=== PATIENT | female | born 1945 | race Hispanic/Latino ===

== ENCOUNTER 2017-01-21 06:52 | Day surgery (SDC) | payer MEDICARE ==
[2017-01-13 09:18] VITALS: BMI 25.9
[2017-01-21] MEDS ORDERED: Propofol 10 mg/ml Inj (20 ML) ONE (09:12)
[2017-01-21] MEDS ORDERED: Sodium Chloride 0.9% 1,000 ML IV SCH (09:30)
[2017-01-21 10:40] VITALS: BP 119/53; RESP 16; TEMP 97.8; O2SAT 100
[2017-01-21 10:43] VITALS: PULSE 63
== END 2017-01-21 10:50 | disposition home or self-care (01) ==
LOC: ENDO 06:52
PROVIDERS: ATTEND Internal Medicine
DX: K22.70 Barrett's esophagus without dysplasia (principal); K31.7 Polyp of stomach and duodenum; K21.9 Gastro-esophageal reflux disease without esophagitis; Z98.84 Bariatric surgery status
CPT/HCPCS: 43239; 88305; 88312; J2704; J7040 ×2

== ENCOUNTER 2017-01-29 20:10 | Emergency (ER) | payer MEDICARE ==
[2017-01-29 20:16] VITALS: BMI 25.7
[2017-01-29 20:21] VITALS: TEMP 98.1
[2017-01-29] MEDS ORDERED: TDAP Vaccine 0.5 mL Syr IM ONE (20:33)
--- NOTE | 2017-01-29 20:36 | ED PDOC ---
Arrival/HPI - General Chief Complaint: Trauma Time Seen by Provider: 01/29/17 20:32 Historian: Patient - History of Present Illness Narrative History of Present Illness (Text): 01/29/17 21:17 71-year-old female presents today status post mechanical fall. Patient is complaining of pain to the right upper arm right elbow and right forearm left hand and left wrist. Patient states she tripped and fell floor landing on her left arm then her right arm and both knees. Patient states she hit her head. Denies headache dizziness or loss of consciousness. Patient unsure of her last tetanus shot. Patient denies numbness weakness or tingling in the extremity. Patient states she has not taken any medications for pain at home. Patient states incident occurred prior to arrival. Patient refusing any medications for pain Time/Duration: Prior to Arrival Symptom Onset: Sudden Symptom Course: Unchanged Quality: Aching, Throbbing Severity Level: 7 Past Medical History - Provider Review Nursing Documentation Reviewed: Yes - Travel History Have you recently traveled outside [place] w/in the past 3 mons?: No - Infectious Disease Hx of Infectious Diseases: None - Tetanus Immunization Tetanus Immunization: Unknown - Reproductive Menopause: Yes - Cardiac Hx Cardiac Disorders: Yes Hx Hypertension: Yes Hx Pacemaker: No - Pulmonary Hx Respiratory Disorders: No - Neurological Hx Neurological Disorder: No Hx Paralysis: No - HEENT Hx HEENT Disorder: No - Renal Hx Renal Disorder: No - Endocrine/Metabolic Hx Endocrine Disorders: No - Hematological/Oncological Hx Blood Disorders: No Hx Blood Transfusions: No - Integumentary Hx Dermatological Disorder: No - Musculoskeletal/Rheumatological Hx Musculoskeletal Disorders: No - Gastrointestinal Hx Gastrointestinal Disorders: No - Genitourinary/Gynecological Hx Genitourinary Disorders: No - Psychiatric Hx Psychophysiologic Disorder: Yes Hx Anxiety: Yes Hx Emotional Abuse: No Hx Physical Abuse: No Hx Substance Use: No - Surgical History Hx Hysterectomy: Yes Other/Comment: lap band 8 years ago - Anesthesia Hx Anesthesia: Yes Hx Anesthesia Reactions: No Hx Malignant Hyperthermia: No - Suicidal Assessment Feels Threatened In Home Enviroment: No Family/Social History - Physician Review Nursing Documentation Reviewed: Yes Family/Social History: Unknown Family HX Smoking Status: Never Smoked Hx Alcohol Use: No Hx Substance Use: No Allergies/Home Meds Allergies/Adverse Reactions: Allergies No Known Allergies Allergy (Verified 01/29/17 20:16) Home Medications: Home Meds Medication Instructions Recorded Confirmed Zolpidem Tartrate [Ambien] 10 mg PO HS 09/16/14 01/29/17 Alprazolam [Alprazolam Xr] 0.5 mg PO BID PRN 10/02/15 01/29/17 Hydrochlorothiazide [HCTZ] 25 mg PO DAILY 10/02/15 01/29/17 Lisinopril [Zestril] 40 mg PO DAILY 10/02/15 01/29/17 Multivitamin [One Daily] 1 tab PO DAILY 10/02/15 01/29/17 Dexlansoprazole [Dexilant] 1 tab PO DAILY 01/21/17 01/29/17 Review of Systems - Review of Systems Constitutional: absent: Fatigue, Fevers Eyes: absent: Vision Changes, Photophobia, Eye Pain Respiratory: absent: SOB, Cough Cardiovascular: absent: Chest Pain, Palpitations Gastrointestinal: absent: Abdominal Pain, Nausea, Vomiting Genitourinary Female: absent: Dysuria Musculoskeletal: Arthralgias. absent: Back Pain, Neck Pain Skin: absent: Rash, Pruritis Neurological: absent: Headache, Dizziness, Focal Weakness, Disequilibrium Physical Exam Vital Signs Reviewed: Yes Vital Signs Temp Pulse Resp BP Pulse Ox 01/29/17 23:49 78 16 155/85 H 95 01/29/17 20:19 98.1 F 95 H 18 172/100 H 100 Temperature: Afebrile Blood Pressure: Hypertensive Pulse: Regular Respiratory Rate: Normal Appearance: Positive for: Well-Appearing, Non-Toxic, Comfortable Pain Distress: None Mental Status: Positive for: Alert and Oriented X 3 - Systems Exam Head: Present: Atraumatic. No: Tenderness, Contusion, Swelling, Ecchymosis, Abrasion Pupils: Present: PERRL Extroacular Muscles: Present: EOMI Mouth: Present: Moist Mucous Membranes Neck: Present: Normal Range of Motion. No: MIDLINE TENDERNESS, Paraspinal Tenderness Respiratory/Chest: Present: Clear to Auscultation, Good Air Exchange. No: Respiratory Distress, Accessory Muscle Use Cardiovascular: Present: Regular Rate and Rhythm, Normal S1, S2. No: Murmurs Abdomen: No: Tenderness Back: Present: Normal Inspection. No: Midline Tenderness, Paraspinal Tenderness Upper Extremity: Present: NORMAL PULSES, Tenderness (right arm; + ttp over humerus, elbow and forearm; + edema to forearm; limited supination and extension. sensation and distal pulses intact; cap refill <2. left arm; + ttp over base of left hand, no wrist tenderness; full rom of wrist; no snuff box tenderness; sensation and distal pulses intact; cap refill <2. + abrasion to volar aspect of left hand along base of 5th metacarpal abrasion to left posterior elbow; non tender. full rom of elbow; no shoulder tenderness. ), Swelling, Neurovascularly Intact, Capillary Refill < 2s, Other (right hand + ecchymosis over palmar aspect of hand. + tenderness. no wrist tenderness. no snuff box tenderness of right wrist. ). No: Normal ROM, Erythema, Deformity Lower Extremity: Present: Capillary Refill < 2 s, Other (abrasions noted to anterior aspect of both knees. full rom. ambulates with steady gait. ). No: CALF TENDERNESS, Tenderness, Swelling, Erythema, Deformity Neurological: Present: GCS=15, Speech Normal Skin: Present: Warm, Dry, Normal Color Psychiatric: Present: Alert, Oriented x 3 Medical Decision Making ED Course and Treatment: 01/29/17 21:21 71yr old female with right and left arm pain and head injury s/p mechanical fall. pt refused any medications for pain. xray left hand; no fracture xray left wrist; no fracture xray right humerus; no fracture xray right forearm; no fracture xray right elbow + sail sign; no visible fracture. pt returned from xray; now c/o right hand pain and pain to the both knees. pt now wants pain medication. states she was trying to be tough before. xray right hand; no fracture xray of b/l knees; no fracture ct head; FINDINGS: Brain: There are scattered foci of hypodensity within the cerebral white matter, likely representing small vessel ischemic disease in a patient this age. The acuity of the white matter disease is indeterminate. The white-tovar differentiation is preserved demonstrating no acute territorial type infarct. There is mild prominence of the ventricles and frontal sulci, compatible with atrophy. No acute intracranial hemorrhage is seen. There is an empty sella. Midline shift: There is no midline shift. Ventricles: See above. Bones/joints: The calvarium demonstrates no evidence for a depressed fracture. Soft tissues: No acute abnormality. Vasculature: There is atherosclerotic calcification of the cavernous internal carotid arteries. Sinuses: Mucosal thickening/effusion is seen within the left sphenoid sinus. There is opacification of a left mid ethmoid air cell. Mastoid air cells: No mastoid effusion. IMPRESSION: 1. No acute intracranial hemorrhage or acute territorial type infarct. 2. There are scattered foci of hypodensity within the cerebral white matter, likely representing small vessel ischemic disease in a patient this age. 3. Mild atrophy. 4. Paranasal sinus disease is noted above. 5. There is an empty sella. tetanus updated pt reassessment; i discussed all results in depth with patient; long arm posterior splint applied, sling applied. all wounds cleaned, bacitracin and dressing applied. i advised f/u with orthopedist within the next 2 days. i advised immediate return if symptoms worsen,persist or if new symptoms develop. Patient verbalized full agreement with and understanding of discharge instructions. States that he agrees with the plan and disposition. Verbalized and repeated discharge instructions and plan. I have given the patient opportunity to ask any additional questions. all aspects of this case were discussed the attending of record. impression; elbow fracture, arm pain, abrasion arm, abrasion knee, head injury motrin every 6 hours as needed for pain percocet; 1 tablet every 6 hours as needed for moderate to severe pain; may cause drowsiness follow up with the orthopedist within the next 2 days follow up with the primary care physician within the next 2 days. rest, ice, elevation. return immediately if symptoms worsen,persist or if new symptoms develop. - RAD Interpretation Radiology Orders: 01/29/17 20:32 HEAD W/O CONTRAST [CT] Stat 01/29/17 20:33 ELBOW RIGHT 3 VIEWS ROUTINE [RAD] Stat FOREARM RIGHT [RAD] Stat HAND LEFT 3 VIEWS ROUTINE [RAD] Stat HUMERUS RIGHT [RAD] Stat WRIST, LEFT 3 VIEWS [RAD] Stat 01/29/17 21:50 HAND RIGHT 3 VIEWS [RAD] Stat KNEES BILATERAL [RAD] Stat - Medication Orders Current Medication Orders: Discontinued Medications Ketorolac Tromethamine (Toradol) 30 mg IM STAT STA Stop: 01/29/17 21:53 Last Admin: 01/29/17 22:35 Dose: 30 mg Oxycodone/Acetaminophen (Percocet 5/325 Mg Tab) 1 tab PO STAT STA Stop: 01/29/17 21:50 Last Admin: 01/29/17 22:35 Dose: 1 tab Tetanus/Reduced Diphtheria/Acell Pertussis (Boostrix Vaccine Inj) 0.5 ml IM .ONCE ONE Stop: 01/29/17 20:34 Last Admin: 01/29/17 21:41 Dose: 0.5 ml Procedures - Splinting Location: right elbow Hand-Made Type: fiberglass Splint: long arm posterior splint Pre-Proc Neuro Vasc Exam: normal Post-Proc Neuro Vasc Exam: normal Disposition/Present on Arrival - Present on Arrival Any Indicators Present on Arrival: No History of DVT/PE: No History of Uncontrolled Diabetes: No Urinary Catheter: No History of Decub. Ulcer: No History Surgical Site Infection Following: None - Disposition Have Diagnosis and Disposition been Completed?: Yes Diagnosis: Elbow fracture, Arm pain, Abrasion of arm, left, Abrasion, knee, Head injury Disposition: HOME/ ROUTINE Disposition Time: 21:26 Patient Plan: Discharge Condition: GOOD Discharge Instructions (ExitCare): Elbow Fracture in Adults (ED), Head Injury ( ED), Abrasion (ED) Additional Instructions: motrin every 6 hours as needed for pain percocet; 1 tablet every 6 hours as needed for moderate to severe pain; may cause drowsiness follow up with the orthopedist within the next 2 days follow up with the primary care physician within the next 2 days. rest, ice, elevation. return immediately if symptoms worsen,persist or if new symptoms develop. Prescriptions: Ibuprofen [Motrin] 600 mg PO Q6H PRN #20 tab PRN Reason: pain/fever reduction oxyCODONE/Acetaminophen [Percocet 5/325 mg Tab] 1 tab PO Q6H PRN #10 tab PRN Reason: moderate to severe pain Referrals: Val BRISCOE,Sergei Floyd MD [Primary Care Provider] - Follow up with primary Terra Carmona MD [Staff Provider] - Follow up with primary Forms: WORK NOTE
--- NOTE | 2017-01-29 21:44 | CT ---
EXAM: CT Head Without Intravenous Contrast CLINICAL HISTORY: The patient age is 71 years old and is female; Injury or trauma; Fall; Initial encounter; Blunt trauma (contusions or hematomas) Facility exam id and description: Ct heads head w/o contrast TECHNIQUE: Axial computed tomography images of the head/brain without intravenous contrast. This CT exam was performed using one or more of the following dose reduction techniques: automated exposure control, adjustment of the mA and/or kV according to patient size, and/or use of iterative reconstruction technique. EXAM DATE/TIME: 01/29/2017 8:32 PM COMPARISON: No relevant prior studies available. FINDINGS: Brain: There are scattered foci of hypodensity within the cerebral white matter, likely representing small vessel ischemic disease in a patient this age. The acuity of the white matter disease is indeterminate. The white-tovar differentiation is preserved demonstrating no acute territorial type infarct. There is mild prominence of the ventricles and frontal sulci, compatible with atrophy. No acute intracranial hemorrhage is seen. There is an empty sella. Midline shift: There is no midline shift. Ventricles: See above. Bones/joints: The calvarium demonstrates no evidence for a depressed fracture. Soft tissues: No acute abnormality. Vasculature: There is atherosclerotic calcification of the cavernous internal carotid arteries. Sinuses: Mucosal thickening/effusion is seen within the left sphenoid sinus. There is opacification of a left mid ethmoid air cell. Mastoid air cells: No mastoid effusion. IMPRESSION: 1. No acute intracranial hemorrhage or acute territorial type infarct. 2. There are scattered foci of hypodensity within the cerebral white matter, likely representing small vessel ischemic disease in a patient this age. 3. Mild atrophy. 4. Paranasal sinus disease is noted above. 5. There is an empty sella.
[2017-01-29] MEDS ORDERED: Oxycodone/Acetaminophen 5/325 mg Tab PO STA (21:49)
[2017-01-29 23:50] VITALS: BP 155/85; PULSE 78; RESP 16; O2SAT 95
--- NOTE | 2017-01-30 08:40 | RAD ---
PROCEDURE: Bilateral Knee Radiographs. HISTORY: knee pain COMPARISON: None. FINDINGS: BONES: Right Knee: Normal. No fracture. Left Knee: Normal. No fracture. JOINTS: Right Knee: Normal. No osteoarthritis. Left knee: Normal. No osteoarthritis. SOFT TISSUES: Right Knee: Normal. Left Knee: Normal. JOINT EFFUSION: Right Knee: None. Left Knee: None. OTHER FINDINGS: None. IMPRESSION: Normal radiographs of the knees.
--- NOTE | 2017-01-30 08:43 | RAD ---
PROCEDURE: Right Hand Radiographs. HISTORY: fall, hand pain, palm COMPARISON: 01/29/2017 FINDINGS: BONES: Normal. No fracture. JOINTS: Severe degenerative changes are seen in the DIP joints SOFT TISSUES: Normal. OTHER FINDINGS: None. IMPRESSION: Osteoarthritis involving the DIP joints
--- NOTE | 2017-01-30 08:45 | RAD ---
PROCEDURE: Radiographs of the right humerus. HISTORY: fall COMPARISON: None. FINDINGS: BONES: Normal. No fracture or focal lesion. SOFT TISSUES: Normal. OTHER FINDINGS: None. IMPRESSION: Normal radiographs of right humerus.
--- NOTE | 2017-01-30 08:47 | RAD ---
PROCEDURE: Radiographs of the right elbow. HISTORY: fall COMPARISON: No prior. FINDINGS: BONES: Normal. No fracture. JOINTS: Normal. No osteoarthritis. SOFT TISSUES: There is a small exostosis arising from the ventral aspect of the distal humerus. JOINT EFFUSION: There is elevation of the anterior fat pad OTHER FINDINGS: None. IMPRESSION: Joint effusion with elevation of anterior fat pad. No obvious fracture
--- NOTE | 2017-01-30 08:49 | RAD ---
PROCEDURE: Radiographs of the Right Forearm HISTORY: fall COMPARISON: None available. TECHNIQUE: Frontal and lateral views obtained. FINDINGS: BONES: No fracture or destructive lesion. JOINT SPACES: Unremarkable. OTHER FINDINGS: None. IMPRESSION: Unremarkable radiographs of the right forearm.
--- NOTE | 2017-01-30 08:51 | RAD ---
PROCEDURE: Left Wrist Radiographs. HISTORY: fall COMPARISON: None. FINDINGS: BONES: Normal. No fracture. JOINTS: Normal. No dislocation. SOFT TISSUES: Normal. OTHER FINDINGS: None. IMPRESSION: Normal left wrist radiographs.
--- NOTE | 2017-01-30 08:52 | RAD ---
PROCEDURE: Left Hand Radiographs. HISTORY: fall COMPARISON: None. FINDINGS: BONES: Normal. No fracture. JOINTS: There is osteoarthritis involving the DIP joints SOFT TISSUES: Normal. OTHER FINDINGS: None. IMPRESSION: No acute fracture.
== END 2017-01-29 23:52 | disposition home or self-care (01) ==
LOC: ED 20:10
DX: S42.401A Unspecified fracture of lower end of right humerus, initial encounter for closed fracture (principal); S40.812A Abrasion of left upper arm, initial encounter; S80.212A Abrasion, left knee, initial encounter; S80.211A Abrasion, right knee, initial encounter; S09.90XA Unspecified injury of head, initial encounter; W01.0XXA Fall on same level from slipping, tripping and stumbling without subsequent striking against object, initial encounter; Y93.89 Activity, other specified; Y92.89 Other specified places as the place of occurrence of the external cause; Z23 Encounter for immunization
CPT/HCPCS: 70450; 73060; 73080; 73090; 73110; 73130; 73560; 90471; 90715; 96372; 99284; J1885

== ENCOUNTER 2018-06-08 14:46 | Emergency (ER) | payer MEDICARE ==
[2018-06-08 14:59] VITALS: BMI 26.6
[2018-06-08 15:11] VITALS: RESP 18; TEMP 97.9; O2SAT 99
--- NOTE | 2018-06-08 15:14 | ED PDOC ---
Arrival/HPI - General Historian: Patient - History of Present Illness Narrative History of Present Illness (Text): 06/08/18 15:07 73 y/o, female, pmh including htn, psychiatric history including anxiety, c/o lt. zambrano/ankle/foot pain s/p fall about 2 weeks ago. Pt. stated that twisted the lt. ankle/foot about 2 weeks ago and landed on the left knee, been having pain and swelling, seen by the pmd and send for LLE Venuous doppler which was negative, no numbness or tingling, no rash, no dizziness, no change in vision, no night sweat, no other medical or psychological complaints. Past Medical History - Provider Review Nursing Documentation Reviewed: Yes - Infectious Disease Hx of Infectious Diseases: None - Tetanus Immunization Tetanus Immunization: Unknown - Cardiac Hx Cardiac Disorders: Yes Hx Pacemaker: No - Pulmonary Hx Respiratory Disorders: No - Neurological Hx Neurological Disorder: No Hx Paralysis: No - HEENT Hx HEENT Disorder: No - Renal Hx Renal Disorder: No - Endocrine/Metabolic Hx Endocrine Disorders: No - Hematological/Oncological Hx Blood Disorders: No Hx Blood Transfusions: No - Integumentary Hx Dermatological Disorder: No - Musculoskeletal/Rheumatological Hx Musculoskeletal Disorders: No - Gastrointestinal Hx Gastrointestinal Disorders: No - Genitourinary/Gynecological Hx Genitourinary Disorders: No - Psychiatric Hx Emotional Abuse: No Hx Physical Abuse: No Hx Substance Use: No - Surgical History Hx Gastric Bypass Surgery: Yes Other/Comment: lap band 8 years ago - Anesthesia Hx Anesthesia: Yes Hx Anesthesia Reactions: No Hx Malignant Hyperthermia: No - Suicidal Assessment Feels Threatened In Home Enviroment: No Family/Social History - Physician Review Nursing Documentation Reviewed: Yes Family/Social History: Unknown Family HX Smoking Status: Never Smoked Hx Alcohol Use: No Hx Substance Use: No Allergies/Home Meds Allergies/Adverse Reactions: Allergies No Known Allergies Allergy (Verified 06/08/18 15:08) Home Medications: Home Meds Medication Instructions Recorded Confirmed Zolpidem Tartrate [Ambien] 10 mg PO HS 09/16/14 06/08/18 Alprazolam [Alprazolam Xr] 0.5 mg PO BID PRN 10/02/15 06/08/18 Hydrochlorothiazide [HCTZ] 25 mg PO DAILY 10/02/15 06/08/18 Lisinopril [Zestril] 40 mg PO DAILY 10/02/15 06/08/18 Dexlansoprazole [Dexilant] 1 tab PO DAILY 01/21/17 06/08/18 Review of Systems - Review of Systems Constitutional: absent: Fatigue, Fevers Eyes: absent: Vision Changes ENT: absent: Hearing Changes Respiratory: absent: SOB, Cough Cardiovascular: absent: Chest Pain Gastrointestinal: absent: Abdominal Pain, Nausea, Vomiting Musculoskeletal: Arthralgias, Joint Swelling. absent: Back Pain, Neck Pain, Myalgias Skin: absent: Rash, Pruritis Neurological: absent: Headache, Dizziness Psychiatric: absent: Anxiety, Depression Physical Exam Vital Signs Reviewed: Yes Temperature: Afebrile Blood Pressure: Hypertensive Pulse: Regular Respiratory Rate: Normal Appearance: Positive for: Well-Appearing, Non-Toxic, Comfortable Pain Distress: Moderate Mental Status: Positive for: Alert and Oriented X 3 - Systems Exam Head: Present: Atraumatic, Normocephalic Pupils: Present: PERRL Extroacular Muscles: Present: EOMI Conjunctiva: Present: Normal Mouth: Present: Moist Mucous Membranes Neck: Present: Normal Range of Motion Respiratory/Chest: Present: Clear to Auscultation, Good Air Exchange. No: Respiratory Distress, Accessory Muscle Use Cardiovascular: Present: Regular Rate and Rhythm, Normal S1, S2. No: Murmurs Abdomen: No: Tenderness, Distention, Peritoneal Signs Back: Present: Normal Inspection Upper Extremity: Present: Normal Inspection. No: Cyanosis, Edema Lower Extremity: Present: Normal Inspection, Other (LLE: +ttp on the lt. anterior proximal zambrano and anterior knee joint, mild +ttp on the lateral ankle and foot region, no calf tenderness, no skin tightening, no cellulitis or ulcers, negative bray signs, FROM without limitation, sensation intact, motor 5/5, +DPPT pulses, capillary refill< 2 seconds neurovascular intact. ). No: Edema Neurological: Present: GCS=15, CN II-XII Intact, Speech Normal Skin: Present: Warm, Dry, Normal Color. No: Rashes Psychiatric: Present: Alert, Oriented x 3, Normal Insight, Normal Concentration Medical Decision Making ED Course and Treatment: 06/08/18 15:31 -xrays -percocet -Observe and reassess 06/08/18 17:15 -Lt. knee xray show no fracture or dislocation -Lt. tibia/fibula xray show no fracture or dislocation -Lt. ankle xray show no fracture or dislocation -Lt. foot xray show no fracture or dislocation -Pt. is anxious and didn't take her bp medication, xanax 0.5mg (ususal dose for her) and clonidine 0.2mg po ordered -Olegario wraps applied by me with neurovascular intact. 06/08/18 19:06 -BP improved, feeling much better, asymptomatic, will discharge home. -Discharge home with tylenol, olegario wrap, cane, follow up with your own pmd and orthopedic within 2 day, return to the ER for any new or worsening signs or symptoms. - RAD Interpretation Radiology Orders: -Lt. knee xray Date of service: 06/08/2018 PROCEDURE: Left Knee Radiographs. HISTORY: Posttraumatic pain, fall 2 weeks ago COMPARISON: None. FINDINGS: BONES: No visible fracture. JOINTS: Multicompartmental degenerative changes, mild. JOINT EFFUSION: None. OTHER FINDINGS: None. IMPRESSION: No acute findings related to/ accounting for the clinical presentation. Additional benign and/or incidental findings described above. -Lt. tibia/fibula xray Date of service: 06/08/2018 PROCEDURE: Radiographs of the left tibia and fibula. HISTORY: fall and pain x 2 weeks COMPARISON: June 08, 2018. TECHNIQUE: Frontal and lateral views obtained. FINDINGS: BONES: No fracture or destructive lesion. JOINT SPACES: Unremarkable. OTHER FINDINGS: None. IMPRESSION: Soft tissue swelling without acute articular or osseous abnormality. -Lt. ankle xray Date of service: 06/08/2018 PROCEDURE: Left Ankle Radiographs. HISTORY: fall and pain x 2 weeks COMPARISON: None available. FINDINGS: BONES: Normal. No fracture. JOINTS: Normal. No osteoarthritis. Ankle mortise maintained. Talar dome intact SOFT TISSUES: Lateral soft tissue swelling without distal fibular fracture. OTHER FINDINGS: None. IMPRESSION: Soft tissue swelling without acute articular or osseous abnormality. -Lt. foot xray Date of service: 06/08/2018 PROCEDURE: Left Foot Radiographs. HISTORY: fall and pain x 2 weeks COMPARISON: None. FINDINGS: BONES: Normal. No fracture. JOINTS: Normal. SOFT TISSUES: Normal. OTHER FINDINGS: None. IMPRESSION: Normal left foot radiographs. [employer] Et[employer] Developer: Radiologist - PA / [employer] / Resident Statement MD/ has reviewed & agrees with the documentation as recorded. Disposition/Present on Arrival - Present on Arrival Any Indicators Present on Arrival: No History of DVT/PE: No History of Uncontrolled Diabetes: No Urinary Catheter: No History of Decub. Ulcer: No History Surgical Site Infection Following: None - Disposition Have Diagnosis and Disposition been Completed?: Yes Diagnosis: Fall, Arthralgia, HTN (hypertension) Disposition: HOME/ ROUTINE Disposition Time: 19:06 Patient Plan: Discharge Patient Problems: Current Active Problems Problem Status Onset Fall Acute Arthralgia Acute HTN (hypertension) Acute Condition: IMPROVED Discharge Instructions (ExitCare): High Blood Pressure in Adults, Preventing Falls, Joint Pain Additional Instructions: -Discharge home with tylenol, olegario wrap, cane, follow up with your own pmd and orthopedic within 2 day, return to the ER for any new or worsening signs or symptoms. Prescriptions: Acetaminophen [Pain Reliever] 500 mg PO QID PRN #30 tablet PRN Reason: Other Referrals: Val BRISCOE,Sergei Floyd MD [Primary Care Provider] - Follow up with primary Naldo Phan MD [Staff Provider] - Follow up with primary
[2018-06-08] MEDS ORDERED: Oxycodone/Acetaminophen 5/325 mg Tab PO STA (15:22)
--- NOTE | 2018-06-08 17:08 | RAD ---
Date of service: 06/08/2018 PROCEDURE: Radiographs of the left tibia and fibula. HISTORY: fall and pain x 2 weeks COMPARISON: June 08, 2018. TECHNIQUE: Frontal and lateral views obtained. FINDINGS: BONES: No fracture or destructive lesion. JOINT SPACES: Unremarkable. OTHER FINDINGS: None. IMPRESSION: Soft tissue swelling without acute articular or osseous abnormality.
--- NOTE | 2018-06-08 17:09 | RAD ---
Date of service: 06/08/2018 PROCEDURE: Left Foot Radiographs. HISTORY: fall and pain x 2 weeks COMPARISON: None. FINDINGS: BONES: Normal. No fracture. JOINTS: Normal. SOFT TISSUES: Normal. OTHER FINDINGS: None. IMPRESSION: Normal left foot radiographs. Concordant results with the preliminary interpretation rendered by the emergency department physician procedure.
--- NOTE | 2018-06-08 18:28 | RAD ---
Date of service: 06/08/2018 PROCEDURE: Left Ankle Radiographs. HISTORY: fall and pain x 2 weeks COMPARISON: None available. FINDINGS: BONES: Normal. No fracture. JOINTS: Normal. No osteoarthritis. Ankle mortise maintained. Talar dome intact SOFT TISSUES: Lateral soft tissue swelling without distal fibular fracture. OTHER FINDINGS: None. IMPRESSION: Soft tissue swelling without acute articular or osseous abnormality. Concordant results with the preliminary interpretation rendered by the emergency department physician procedure.
--- NOTE | 2018-06-08 18:29 | RAD ---
Date of service: 06/08/2018 PROCEDURE: Left Knee Radiographs. HISTORY: Posttraumatic pain, fall 2 weeks ago COMPARISON: None. FINDINGS: BONES: No visible fracture. JOINTS: Multicompartmental degenerative changes, mild. JOINT EFFUSION: None. OTHER FINDINGS: None. IMPRESSION: No acute findings related to/ accounting for the clinical presentation. Additional benign and/or incidental findings described above. Concordant results with the preliminary interpretation rendered by the emergency department physician procedure.
[2018-06-08 19:04] VITALS: BP 133/57; PULSE 81
== END 2018-06-08 19:19 | disposition home or self-care (01) ==
LOC: ED 14:46
DX: I10 Essential (primary) hypertension (principal); M25.572 Pain in left ankle and joints of left foot; W19.XXXA Unspecified fall, initial encounter; Y92.9 Unspecified place or not applicable

== ENCOUNTER 2018-10-23 08:43 | Outpatient (CLI) | payer MEDICARE | END 2018-10-23 08:44 | disposition home or self-care (01) | LOC: RAD 08:43 ==

== ENCOUNTER 2018-11-30 09:49 | Day surgery (SDC) | payer MEDICARE ==
[2018-07-03 09:08] VITALS: BMI 26.2
[2018-11-30] MEDS ORDERED: Sodium Chloride 0.9% 1,000 ML IV SCH (11:45)
[2018-11-30] MEDS ORDERED: Propofol 10 mg/ml Inj (20 ML) ONE (11:46)
[2018-11-30 13:07] VITALS: BP 147/71; PULSE 72; RESP 16; TEMP 97.6; O2SAT 98
== END 2018-11-30 13:56 | disposition home or self-care (01) ==
LOC: ENDO 09:49
PROVIDERS: ATTEND Internal Medicine Gastroenterology
DX: K22.70 Barrett's esophagus without dysplasia (principal); K21.9 Gastro-esophageal reflux disease without esophagitis; K29.50 Unspecified chronic gastritis without bleeding; R13.10 Dysphagia, unspecified; R10.12 Left upper quadrant pain; Z98.84 Bariatric surgery status
CPT/HCPCS: 43239; 88305; 88312; 88342; J2001; J2704; J7030; J7040